=== PATIENT | female | born 1990 | race Caucasian/White ===

== ENCOUNTER 2017-10-01 16:23 | Emergency (ER) | payer OTHER ==
[2017-10-01 16:42] VITALS: BP 128/64
[2017-10-01] MEDS ORDERED: HYDROcodone/ACETAMIN 5-325 MG* 1 TAB PO ONE ×2 (17:02→18:06)
--- NOTE | 2017-10-01 17:40 | RAD ---
HISTORY: Left-sided pain, fall COMPARISONS: None VIEWS: 5, Frontal internal rotation, external rotation, outlet, and axillary views of the left shoulder FINDINGS: BONE DENSITY: Normal. BONES: There is no displaced fracture. There is a bone island of the acromion. JOINTS: There is no arthropathy. ALIGNMENT: There is no dislocation. SOFT TISSUES: Unremarkable. OTHER FINDINGS: None. IMPRESSION: NO ACUTE OSSEOUS INJURY. IF SYMPTOMS PERSIST, RECOMMEND REPEAT IMAGING.
--- NOTE | 2017-10-01 17:40 | RAD ---
HISTORY: Chest pain, fall COMPARISONS: None VIEWS: 4: Frontal dual-energy and lateral views of the chest. FINDINGS: CARDIOMEDIASTINAL SILHOUETTE: The cardiomediastinal silhouette is normal. LACY: The lacy are normal. PLEURA: The costophrenic angles are sharp. No pleural abnormalities are noted. LUNG PARENCHYMA: The lungs are clear. ABDOMEN: The upper abdomen is clear. There is no subphrenic gas. BONES AND SOFT TISSUES: There is a pectus excavatum deformity. OTHER: None. IMPRESSION: NO ACTIVE CARDIOPULMONARY DISEASE.
--- NOTE | 2017-10-01 18:14 | UC ---
Shoulder Pain HPI - HPI Summary HPI Summary: states she fell off a staircase about 2 weeks ago hurting her left shoulder and the back of her left shoulderblade and pain is becoming worse, radiating forward to the chest. She denies SOB, palpitations or PMH cardiac disease and chest pain has been increasing for the past 5 days. - History of Current Complaint Chief Complaint: UCChestPain Stated Complaint: CHEST PAIN Time Seen by Provider: 10/01/17 16:34 Hx Obtained From: Patient Hx Last Menstrual Period: 09/26/17 ?: No Onset/Duration: Gradual Onset, Lasting Weeks Timing: Constant Severity Initially: Moderate Severity Currently: Moderate Location Of Pain: Is Diffuse Pain Scale Used: 0-10 Numeric - 7 Character: Dull, Aching Aggravating Factor(s): Movement Alleviating Factor(s): OTC Meds Associated Signs And Symptoms: Positive: Negative - Risk Factors Non-Orthopedic Risk Factor: Negative DVT Risk Factors: Negative Septic Arthritis Risk Factor: Negative - Allergies/Home Medications Allergies/Adverse Reactions: Allergies Allergy/AdvReac Type Severity Reaction Status Date / Time No Known Allergies Allergy Verified 10/01/17 16:42 Home Medications: Home Medications NK [No Home Medications Reported] 10/01/17 [History Confirmed 10/01/17] PMH/Surg Hx/FS Hx/Imm Hx Previously Healthy: Yes - Surgical History Surgical History: None Surgery Procedure, Year, and Place: denies - Family History Known Family History: Positive: Hypertension - Social History Alcohol Use: Occasionally Substance Use Type: None, Marijuana Substance Use Comment - Amount & Last Used: stopped pot about 10/02 Smoking Status (MU): Light Every Day Tobacco Smoker Type: Cigarettes Amount Used/How Often: 1/2 ppd Review of Systems Constitutional: Negative All Other Systems Reviewed And Are Negative: Yes Physical Exam Triage Information Reviewed: Yes Appearance: Pain Distress Vital Signs: Initial Vital Signs Temp 98 F 10/01/17 16:38 Pulse 78 10/01/17 16:38 Resp 20 10/01/17 16:38 BP 128/64 10/01/17 16:38 Pulse Ox 100 10/01/17 16:38 Vital Signs Reviewed: Yes ENT: Positive: Pharynx normal Neck exam: Normal Respiratory Exam: Normal Cardiovascular Exam: Normal Abdominal Exam: Normal Musculoskeletal Exam: Normal - tender on palpation ac joint and medial border of scapula, otherwise normal Shoulder Course/Dx - Course Course Of Treatment: continue with pain medication prn. Referred PCP - Differential Dx/Diagnosis Provider Diagnoses: shoulder sprain. thoracic pain Discharge - Discharge Plan Condition: Stable Disposition: HOME Patient Education Materials: Shoulder Sprain (ED), Thoracic Pain (ED) Referrals: No Primary Care Phys,NOPCP [Primary Care Provider] - Patient Referred GRANT Parikh [[facility], APPLICATION, OTHER] -
== END 2017-10-01 18:25 | disposition home or self-care (01) ==
LOC: UCEAST 16:23
DX: S43.402A Unspecified sprain of left shoulder joint, initial encounter (principal); W17.89XA Other fall from one level to another, initial encounter; Y93.9 Activity, unspecified; Y92.9 Unspecified place or not applicable; M54.6 Pain in thoracic spine; R07.89 Other chest pain; F17.210 Nicotine dependence, cigarettes, uncomplicated
CPT/HCPCS: 71046; 93005; 99212; G0463